=== PATIENT | male | born 1955 | race Caucasian/White ===

== ENCOUNTER 2016-07-12 08:50 | Outpatient (CLI) | payer MEDICARE, OTHER | END 2016-07-12 08:51 | disposition home or self-care (01) | DX: R06.00 Dyspnea, unspecified (principal); R04.0 Epistaxis; E10.8 Type 1 diabetes mellitus with unspecified complications; E78.00 Pure hypercholesterolemia, unspecified ==

== ENCOUNTER 2016-08-08 10:00 | Outpatient (CLI) | payer MEDICARE, OTHER | END 2016-08-08 10:01 | disposition home or self-care (01) | DX: I26.99 Other pulmonary embolism without acute cor pulmonale (principal) ==

== ENCOUNTER 2016-09-03 11:59 | Emergency (ER) | payer MEDICARE, OTHER, MEDICAID | END 2016-09-03 13:24 | disposition home or self-care (01) | DX: L03.211 Cellulitis of face (principal); B02.9 Zoster without complications; R03.0 Elevated blood-pressure reading, without diagnosis of hypertension; E10.65 Type 1 diabetes mellitus with hyperglycemia; Z79.4 Long term (current) use of insulin ==

== ENCOUNTER 2017-08-28 08:42 | Outpatient (CLI) | payer MEDICARE, OTHER | END 2017-08-28 08:43 | disposition home or self-care (01) | LOC: LAB.F 08:42 | PROVIDERS: ATTEND Internal Medicine | DX: J90 Pleural effusion, not elsewhere classified (principal); G64 Other disorders of peripheral nervous system; K59.00 Constipation, unspecified; R06.00 Dyspnea, unspecified; R71.8 Other abnormality of red blood cells | CPT/HCPCS: 36415; 85613; 85730; 86038; 86146; 86147; 86880 ==

== ENCOUNTER 2018-01-11 08:11 | Outpatient (CLI) | payer MEDICARE, OTHER ==
[2018-01-11 10:39] LABS: ALBUMIN 3.5 g/dL (3.2-5.5); ALBUMIN/GLOBULIN RATIO 0.9 (1.0-2.2); BILIRUBIN,TOTAL 0.8 mg/dL (0.2-1.0); CALCIUM 8.8 mg/dL (8.5-10.3); CREATININE 0.7 mg/dL (0.6-1.2); TOTAL PROTEIN 7.5 g/dL (6.7-8.2)
[2018-01-11 10:42] LABS: BASOPHILS # (AUTO) 0.1 10^3/uL (0.0-0.1); EOSINOPHILS # (AUTO) 0.3 10^3/uL (0.0-0.7); EOSINOPHILS % (AUTO) 3.5 %; HGB - HEMOGLOBIN 14.7 g/dL (14.0-18.0); LYMPHOCYTES # (AUTO) 0.8 10^3/uL (1.5-3.5); LYMPHOCYTES % (AUTO) 9.3 %; MEAN CORPUSCULAR HEMOGLOBIN 31.6 pg (27.0-31.0); MEAN PLATELET VOLUME 10.1 fL (7.4-11.4); MONOCYTES % (AUTO) 11.9 %; NEUTROPHILS # (AUTO) 6.3 10^3/uL (1.5-6.6); NEUTROPHILS % (AUTO) 74.3 %; PLT - PLATELET COUNT 243 10^3/uL (130-450); RED BLOOD COUNT 4.63 10^6/uL (4.70-6.10); RED CELL DISTRIBUTION WIDTH 15.4 % (12.0-15.0); WHITE BLOOD COUNT 8.4 x10^3/uL (4.8-10.8)
[2018-01-11 10:59] LABS: HEMOGLOBIN A1C 0.7 g/dL; HEMOGLOBIN A1C % 5.9 % (4.6-6.2)
== END 2018-01-11 08:12 | disposition home or self-care (01) ==
LOC: LAB.F 08:11
PROVIDERS: ATTEND Ophthalmology
DX: Z01.812 Encounter for preprocedural laboratory examination (principal); E10.9 Type 1 diabetes mellitus without complications; M62.549 Muscle wasting and atrophy, not elsewhere classified, unspecified hand; R73.09 Other abnormal glucose; R71.8 Other abnormality of red blood cells; R09.02 Hypoxemia; R53.83 Other fatigue; G64 Other disorders of peripheral nervous system
CPT/HCPCS: 36415; 80053; 83036; 84443; 85025

== ENCOUNTER 2021-02-09 08:00 | Outpatient (CLI) | payer MEDICARE, OTHER ==
--- NOTE | 2021-02-09 09:56 | XRAY Report ---
PROCEDURE: Chest 2 View X-Ray INDICATIONS: Shortness of breath TECHNIQUE: 2 view(s) of the chest. COMPARISON: 09/21/2014 06/24/2014, 01/15/2014. Correlation is also made with chest CT, 05/13/2014 FINDINGS: Surgical changes and devices: None. Lungs and pleura: This patient has a chronic right-sided pleural effusion, which is small in size. O n the current study, this pleural effusion appears slightly smaller than in 2015. There is a stable t race left-sided pleural effusion. Mild generalized interstitial prominence is seen. No pneumothorax i s seen. Mediastinum: Mediastinal contours are normal. Heart size is normal. Bones and chest wall: No suspicious bony abnormalities. Age-appropriate degenerative changes are see n. Soft tissues appear unremarkable. IMPRESSION: Bilateral small pleural effusions. The right-sided pleural effusion is slightly smaller than in 2015. Interstitial prominence is seen, which is nonspecific. Differential diagnosis includes pulmonary elijah a and artifact. If it would be helpful for clinical management decision making, please consider a dedicated chest CT with IV contrast for further evaluation. Reviewed by: Esteban Fleming MD on 02/09/2021 8:54 AM FUENTES Approved by: Esteban Fleming MD on 02/09/2021 8:54 AM FUENTES Station ID: [id number]
== END 2021-02-09 23:59 | disposition home or self-care (01) ==
LOC: DI.S 08:00
PROVIDERS: ATTEND Physician Assistant Medical
DX: R06.02 Shortness of breath (principal); J90 Pleural effusion, not elsewhere classified

== ENCOUNTER 2021-02-09 10:30 | Outpatient (CLI) | payer MEDICARE, OTHER, MEDICAID | END 2021-02-09 10:31 | disposition short-term general hospital (02) | LOC: EMS 10:30 | DX: R06.02 Shortness of breath (principal); J02.9 Acute pharyngitis, unspecified; M79.10 Myalgia, unspecified site; R53.83 Other fatigue; R11.0 Nausea | CPT/HCPCS: A0425; A0429 ==

== ENCOUNTER 2021-11-21 12:55 | Outpatient (CLI) | payer MEDICARE, OTHER | END 2021-11-21 12:56 | disposition left against medical advice (07) | LOC: EMS 12:55 | DX: R42 Dizziness and giddiness (principal) ==

== ENCOUNTER 2023-08-30 16:36 | Outpatient (CLI) | payer MEDICARE, OTHER, MEDICAID | END 2023-08-30 23:59 | disposition short-term general hospital (02) | LOC: EMS 16:36 | DX: R06.02 Shortness of breath (principal); Z99.81 Dependence on supplemental oxygen | CPT/HCPCS: A0425; A0429 ==

== ENCOUNTER 2023-11-05 08:00 | Outpatient (CLI) | payer MEDICARE, MEDICAID ==
--- NOTE | 2023-11-05 15:29 | XRAY Report ---
PROCEDURE: Hip w/Pelvis 2-3V LT INDICATIONS: LEFT HIP PAIN TECHNIQUE: 2 views of the hip were acquired. COMPARISON: No relevant comparisons at time of dictation. FINDINGS: Bones: No fractures or dislocations. No suspicious bony lesions. Nonuniform joint space narrowing with osteophytic lipping of the acetabulum. Soft tissues: No suspicious soft tissue calcifications or masses. IMPRESSION: No acute bony abnormality. If there remains a high clinical concern for fracture, consider cross-sect ional imaging now. If pain persists, consider repeat x-ray in 10-14 days or cross-sectional imaging. Mild left hip osteoarthritis. Reviewed by: Rco Javier MD on 11/05/2023 3:28 PM PDT Approved by: Roc Javier MD on 11/05/2023 3:28 PM PDT Station ID: [id number]
== END 2023-11-05 23:59 | disposition home or self-care (01) ==
LOC: DI.S 08:00
PROVIDERS: ATTEND Nurse Practitioner
DX: M16.12 Unilateral primary osteoarthritis, left hip (principal)